=== PATIENT | female | born 1960 | race Hispanic/Latino ===

== ENCOUNTER 2023-02-11 07:41 | Observation (INO) | payer OTHER ==
[2023-02-07 08:55] LABS: BASOPHILS % (AUTO) 0.3 % (0.0-5.0); HEMATOCRIT 43.1 % (36-48); MEAN CORPUSCULAR HEMOGLOBIN 32.7 pg (27.0-33.0); MEAN CORPUSCULAR HGB CONC 34.1 g/dL (32.0-36.0); MEAN CORPUSCULAR VOLUME 95.8 fL (79-99); MONOCYTES % (AUTO) 9.9 % (3.0-13.0); NEUTROPHILS % (AUTO) 67.3 % (40.0-77.0); PLATELET COUNT (AUTO) 262 K/uL (130-400); RED CELL DISTRIBUTION WIDTH 12.7 % (11.0-15.5); WHITE BLOOD COUNT (AUTO) 6.3 K/uL (4.8-10.8)
[2023-02-07 10:06] VITALS: BP 123/63
[2023-02-11] VITALS (24 sets, daily range): BP systolic 96–146; BP diastolic 58–79
[~2023-02-11] VITALS: Ht 165.1 cm; Wt 67.0 kg
[~2023-02-11 07:41] MED LIST: CALDOLOR 800MG+NS 250ML 250 ML IV ONE
[2023-02-11] MEDS ORDERED: LACTATED RINGERS 1000ML 1,000 ML IV ONE (07:53)
[2023-02-11] MEDS: CEFAZOLIN SODIUM 2 GM VIAL ONE ×2 (08:15→11:20)
[2023-02-11] MEDS ORDERED: HYDROMORPHONE 1 MG INJ ONE (10:43)
[2023-02-11] MEDS ORDERED: FAMOTIDINE 20MG VIAL IV ONE (10:44)
[2023-02-11] MEDS ORDERED: GLYCOPYRROLATE 1 MG/5 ML SYRINGE ONE (10:53)
[2023-02-11] MEDS ORDERED: ROCURONIUM 10MG/1ML SYR 10 MG/ML ML ONE (10:53)
[2023-02-11] MEDS ORDERED: PROPOFOL 10 MG/ML 20ML VIAL IV ONE (10:53)
[2023-02-11] MEDS ORDERED: LIDOCAINE PF 100MG/5ML (2%) SYRINGE 5ML ONE (10:53)
[2023-02-11] MEDS ORDERED: FENTANYL CITRATE PF 50 MCG/1 ML 2ML VIAL ONE (10:54)
[2023-02-11] MEDS ORDERED: MIDAZOLAM HCL 1 MG/ML 2ML VIAL ONE (11:20)
[2023-02-11] MEDS ORDERED: DiphenhydrAMINE HCL 50 MG/ML VIAL ONE (11:44)
[2023-02-11] MEDS ORDERED: ONDANSETRON 4MG INJ ONE (11:47)
[2023-02-11] MEDS ORDERED: ESTROGENS,CONJUGATED 0.625 MG/GM 42.5 GM VAG CRM VG ONE (12:36)
[2023-02-11] MEDS ORDERED: NEOSTIGMINE 5MG/5ML SYR IV ONE (12:48)
[2023-02-11] MEDS ORDERED: PROMETHAZINE HCL 25 MG/ML 1ML AMPULE IM PRN ×2 (13:00)
[2023-02-11] MEDS ORDERED: SIMETHICONE 80 MG TAB.CHEW PO PRN ×2 (13:00)
[2023-02-11] MEDS ORDERED: MEPERIDINE-PF 75 MG/ML SYG IM PRN (13:00)
[2023-02-11] MEDS ORDERED: DOCUSATE SODIUM 100 MG CAP PO PRN (13:00)
[2023-02-11] MEDS ORDERED: BISACODYL 10 MG SUPP.RECT RC PRN ×2 (13:00)
[2023-02-11] MEDS ORDERED: ACETAMINOPHEN WITH CODEINE 1 TAB TAB PO PRN ×2 (13:00)
[2023-02-11] MEDS ORDERED: ONDANSETRON 4MG INJ IVP PRN (13:00)
[2023-02-11] MEDS: CYCLOBENZAPRINE HCL 10 MG TABLET PO SCH ×2 (14:00→20:55)
[2023-02-11] MEDS: HYDROCODONE/ACETAMINOPHEN 5/325 MG TAB PO PRN (16:24)
[2023-02-11] MEDS: CALDOLOR 800MG+NS 250ML 250 ML IV SCH (20:14)
[2023-02-12 03:26] VITALS: BP 100/63
[2023-02-12] MEDS: CALDOLOR 800MG+NS 250ML 250 ML IV SCH (04:57)
[2023-02-12 07:37] VITALS: BP 94/60
[2023-02-12] MEDS: CYCLOBENZAPRINE HCL 10 MG TABLET PO SCH (08:10)
[2023-02-12 11:35] VITALS: BP 105/63
[2023-02-12] MEDS ORDERED: IBUPROFEN 800 MG TAB PO SCH (13:00)
[2023-02-12] MEDS: HYDROCODONE/ACETAMINOPHEN 5/325 MG TAB PO PRN (14:08)
[2023-02-12 15:50] VITALS: BP 98/61
== END 2023-02-12 16:05 | disposition home or self-care (01) ==
LOC: DAHIP 07:41 → EDSTATUS 10:55 → WSH 14:45 → EDSTATUS 17:00
PROVIDERS: ADMIT Obstetrics & Gynecology; ATTEND Obstetrics & Gynecology
DX: N81.11 Cystocele, midline (principal); Z20.822 Contact with and (suspected) exposure to COVID-19; N81.6 Rectocele
CPT/HCPCS: 85025; 86850 ×2; 86900 ×2; 86901 ×2; 87426; 36415 ×2; 57260; 96372; 96365; 96366 ×2; A4663; J7120 ×3; A4215 ×2; A4344; J1200; J3490 ×2; J3010; J1170; J2710; J2550; J2001; J2250; J2704; J2405; J2175; J1741 ×3; J0690; A4649; A4495; A4223; A4222; A4221; A4600; G0378 ×3